=== PATIENT | male | born 1955 | race Caucasian/White ===

== ENCOUNTER 2022-07-03 11:24 | Outpatient (CLI) | payer OTHER, SELFPAY ==
--- NOTE | ~2022-07-03 | XR_ITS ---
Clinical Indication: Asthma PA and lateral views of the chest: Comparison: None Findings: The lungs are clear, without evidence of focal consolidation or pleural effusion. Possible COPD. Cardiomediastinal silhouette is within normal limits. Bones and soft tissues are unremarkable. Impression: Possible COPD. Clear lungs. Reviewed, dictated and finalized at location M. CONSULTANT Impression: Possible COPD. Clear lungs.
== END 2022-07-03 11:25 | disposition home or self-care (01) ==
PROVIDERS: PCP Family Medicine; Visit Provider Family Medicine
DX: J45.20 Mild intermittent asthma, uncomplicated (principal)
CPT/HCPCS: 71046

== ENCOUNTER 2022-08-31 08:50 | Outpatient (CLI) | payer OTHER, SELFPAY ==
--- NOTE | 2022-08-31 17:26 | WPDPFTINT ---
PFT Procedure Performed PFT Procedure Performed Spirometry with Pre/Post Bronchodilator Plethysmography (Lung Vol) Diffusing Cap (DLCO) Flow Vol Loop PFT Interpretation This is a pulmonary function test with pre and post-bronchodilator spirometry, plethysmography and diffusing capacity. The test was performed and results interpreted in accordance with the 2019 and 2005 ATS/ERS Task Force guidelines respectively using the Global Lung Function Initiative-2012 reference equations. Patient demonstrated good effort and cooperation. Reproducibility criteria were met. The quality of the pre bronchodilator spirometry maneuver was Grade A and post bronchodilator spirometry maneuver was Grade A. Findings: Spirometry: There is decreased maximal expiratory airflow at all lung volumes with concave expiratory flow tracing. Contour the inspiratory flow tracing is normal. The pre bronchodilator FVC is 3.27 L, 82% predicted. The pre bronchodilator FEV1 is 2.15 L, 70% predicted. The pre bronchodilator FEV1: FVC ratio 66%. The post bronchodilator FVC is 3.35 L, representing a 3% increase. The post bronchodilator FEV1 is 2.35 L, representing a 9% increase. The post bronchodilator FEV1: FVC ratio is 70%. Plethysmography: The total lung capacity is 5.42 L, 85% predicted. Functional residual capacity is 2.84 L, 86% predicted. The residual volume is 2.15 L, 99% predicted. Diffusing capacity: The diffusing capacity unadjusted for hemoglobin and carboxyhemoglobin is 21.2, 81% predicted. The diffusing capacity adjusted for alveolar volume is 4.69, 110% predicted. Impression: There is a mild obstructive abnormality without significant improvement after inhaling a single dose of albuterol. The lung volumes are normal. The diffusing capacity is normal. There are no prior studies for comparison
== END 2022-08-31 08:51 | disposition home or self-care (01) ==
PROVIDERS: PCP Family Medicine; Visit Provider Family Medicine
DX: J44.9 Chronic obstructive pulmonary disease, unspecified (principal); R94.2 Abnormal results of pulmonary function studies
CPT/HCPCS: 94060; 94726; 94729

== ENCOUNTER 2022-11-05 11:52 | Emergency (ER) | payer OTHER, SELFPAY ==
[2022-11-05 12:00] VITALS: BP 158/100; PULSE 112; RESP 16; TEMP 36.4; O2SAT 98
--- NOTE | 2022-11-05 12:18 | ED.GENADULT ---
HPI - General Adult General Chief complaint: Urogenital-Male Stated complaint: i can't pee Time Seen by Provider: 11/05/22 11:56 History of Present Illness HPI narrative: 67-year-old male presenting to the ED for evaluation of increased difficulty with urination. Patient denies any prior history of prostate issues. Patient denies any slow progression of urinary difficulty. Patient states last night he had acute onset of difficulty urinating. Patient did present to the primary care physician office today but they were unable to cath him and patient was referred to the ED. Upon arrival to the ED patient had a bladder scan showing greater than 200 mL of retained urine. Related Data Home Medications Medication Instructions Recorded Confirmed carbamazepine 200 mg tablet 200 mg PO Q12H 07/07/22 08/07/22 Allergies Allergy/AdvReac Type Severity Reaction Status Date / Time No Known Allergies Allergy Verified 11/05/22 12:02 Review of Systems Review of Systems: All systems reviewed & are unremarkable except as noted in HPI and below PMFSH Past Medical History Medical History (Updated 11/05/22 @ 13:46 by Matthew Fong MD) Abdominal pain Apnea Asthma BMI (body mass index) 20.0-29.9 Colon polyp COPD with asthma Elevated hemoglobin Hyperlipidemia Hypertension Screening for prostate cancer Seizures Surgical History Surgical History History of ankle surgery Family History Family History Other Heart disease Social History Social History Smoking status: Never smoker Alcohol intake: current Lack of Transportation: No Lack of Food: Never True Current Housing: I Have Housing Concerned About Future Housing: No Difficulty Paying Gas/Electric Bills: No Difficulty Paying for Meds: No Currently Unemployed: Decline to Answer Education: High School Diploma/GED Difficulty w/ Childcare or Family Care: No Exam Narrative: APPEARANCE: Well appearing, no pain, no distress, well-nourished. HEAD: normocephalic, atraumatic. EYES: PERRLA/EOMI, conjunctivae clear. NOSE: Normal no drainage NECK: Supple. No adenopathy, no masses. RESPIRATORY: Airway patent, respirations nonlabored. Clear to auscultation bilaterally, no rales, rhonchi, wheezing. CARDIOVASCULAR: Regular rate and rhythm without murmurs rubs or gallops. ABDOMINAL: Soft, nontender, nondistended, normal bowel sounds MUSCULOSKELETAL: Moves all extremities. Strength/ROM intact, No edema, No calf tenderness. NEURO: Alert. Cranial nerves II through XII intact. Grossly intact SKIN: Warm, dry. Normal Color Course Course Emergency Course: 67-year-old male present to the ED for evaluation of increased difficulty urinating. Bedside bladder scan showed greater than 200 mL of retained urine. Patient was unable to drain. Thrasher catheter was placed and patient drained greater than 400 mL of urine. Patient did feel improved with treatment. Patient had no evidence of a urinary tract infection on the labs. Patient was provided Flomax in the ED and started on Flomax for home. Patient and family were updated on the plan for close follow-up with urology. All questions and concerns were addressed. Patient was improved and well-appearing at time of discharge. Vital Signs Vital signs: Vital Signs Temperature 97.5 F L 11/05/22 12:00 Pulse Rate 112 H 11/05/22 12:00 Respiratory Rate 16 11/05/22 12:00 Blood Pressure 158/100 H 11/05/22 12:00 Pulse Oximetry 98 11/05/22 12:00 Temperature 97.5 F L 11/05/22 12:00 Pulse Rate 90 11/05/22 14:02 Respiratory Rate 16 11/05/22 14:02 Blood Pressure 147/97 H 11/05/22 14:02 Pulse Oximetry 96 11/05/22 14:02 Medical Decision Making Vital Signs Vital Signs: Vital Signs Temperature 97.5 F L 11/05/22 12:0
[2022-11-05 12:34] VITALS: BP 139/97; PULSE 91; RESP 17; O2SAT 94
[2022-11-05 12:45] LABS: Appearance Urine Clear (Clear); Bilirubin Urine Negative (Negative); Blood Urine Negative (Negative); Color Urine Yellow (Yellow); Glucose Urine UA Negative (Negative); Ketones Urine Negative (Negative); Leukocyte Esterase Ur Negative LEU/UL (Negative); Nitrate Urine Negative (Negative); Protein Urine Negative (Negative); Urobilinogen Urine 0.2 mg/dL (<2.0); pH Urine 6.5 (5.0-9.0)
[2022-11-05 12:52] LABS: Add Urine Microscopic? NO
[2022-11-05] MEDS: TAMSULOSIN HCL 0.4 MG CAPSULE PO (13:09)
[2022-11-05 14:02] VITALS: BP 147/97; PULSE 90; RESP 16; O2SAT 96
== END 2022-11-05 14:12 | disposition home or self-care (01) ==
PROVIDERS: Emergency Provider Emergency Medicine; PCP Family Medicine
DX: R33.9 Retention of urine, unspecified (principal); J44.9 Chronic obstructive pulmonary disease, unspecified; E78.5 Hyperlipidemia, unspecified; I10 Essential (primary) hypertension; Z86.010 Personal history of colon polyps
CPT/HCPCS: 51702; 81003; 99283; A9270

== ENCOUNTER 2022-11-11 16:25 | Outpatient (CLI) | payer OTHER, SELFPAY ==
[2022-11-11 16:46] LABS: Hematocrit 50.3 % (42.0-52.0); Hemoglobin 17.3 g/dL (14.0-18.0); Mean Corpuscular HGB Conc 34.4 g/dl (32-36); Mean Corpuscular Hemoglobin 32.2 pg (26-34); Mean Corpuscular Volume 93.5 fl (80-100); Mean Platelet Volume 10.5 fl (7.4-10.4); Platelet Count Result 171 k/mm3 (150-375); Red Blood Count 5.38 M/mm3 (4.6-6.20); Red Cell Distribution Width 12.8 % (11.5-14.5); White Blood Count 5.6 K/mm3 (4.5-10.0)
[2022-11-11 17:25] LABS: Anion Gap 11 mmol/L (8-16); Blood Urea Nitrogen 8 mg/dL (9-20); Calcium 9.1 mg/dL (8.4-10.2); Carbon Dioxide 24 mmol/L (22-30); Chloride 99 mmol/L (98-107); Estimated Glomerular Filt Rate > 60; Glucose 109 mg/dL (65-110); Potassium 3.6 mmol/L (3.4-5.0); Sodium 134 mmol/L (137-145)
[2022-11-11 17:57] LABS: Prostate Specific Antigen 3.7 ng/mL (< OR = 4.0)
== END 2022-11-11 16:26 | disposition home or self-care (01) ==
PROVIDERS: PCP Family Medicine; Visit Provider Nurse Practitioner Family
DX: R33.9 Retention of urine, unspecified (principal); Z12.5 Encounter for screening for malignant neoplasm of prostate
CPT/HCPCS: 36415; 80048; 84153; 85027; G0103

== ENCOUNTER 2023-12-10 09:07 | Outpatient (CLI) | payer OTHER, SELFPAY | END 2023-12-10 09:08 | disposition home or self-care (01) | PROVIDERS: PCP Family Medicine | DX: M25.569 Pain in unspecified knee (principal) | CPT/HCPCS: 73562 ==

== ENCOUNTER 2024-03-02 13:32 | Outpatient (CLI) | payer OTHER, SELFPAY ==
--- NOTE | ~2024-03-02 | XR_ITS ---
EXAMINATION: XR lg joint inject/asp w image DATE: 03/02/2024 14:11 INDICATION: Left hip arthritis. TECHNIQUE: A time-out was performed to verify the patient's name, date of , and procedure to b e performed. The procedure including the risks, benefits, and alternatives was discussed with the pat ient. Risks discussed included bleeding and infection. The patient understood the risks and agreed to proceed. The skin overlying the left hip joint was prepped and draped in usual sterile fashion. An esthetic was administered with 1% lidocaine subcutaneously. A 22 G needle was advanced under fluoros copic guidance into the joint. Subsequently, injectate consisting of 2 mL 0.5% bupivacaine and 1 mL 80 mg/mL Depo-Medrol was instilled. The needle was removed and the entry site was cleaned and dresse d. There were no immediate complications. Fluoroscopy exposure time was 0.1 minutes. The total numbe r of images was 1. FINDINGS: Real-time fluoroscopy demonstrates the needle in the left hip joint. Patient's pain prior t o procedure:2/10. Patient's pain following the procedure: 0/10. IMPRESSION: 1. Fluoroscopy guided left hip joint injection of local anesthetic and steroid with decrease in the p atient's presenting pain. Reviewed, dictated and finalized at location A. IMPRESSION: 1. Fluoroscopy guided left hip joint injection of local anesthetic and steroid with decrease in the patient's presenting pain.
== END 2024-03-02 13:33 | disposition home or self-care (01) ==
LOC: ANHIMG 13:36
PROVIDERS: PCP Family Medicine; Visit Provider Nurse Practitioner Family
DX: M16.12 Unilateral primary osteoarthritis, left hip (principal)
CPT/HCPCS: 20610; 77002; J1010

== ENCOUNTER 2025-05-02 09:14 | Outpatient (CLI) | payer OTHER, SELFPAY ==
--- OUTSIDE RECORDS SUMMARY | 2025-05-02 11:59 | XMS_ITS | Clinical Summary ---
Author Organization [facility] Building [address] Address [address] [place] [address] Care Team Providers Care Train Master Name Role Phone Rodolfo Mcfarland MD Primary Care Provider + [phone] Allergies No known active allergies Medications pravastatin (PRAVACHOL) 20 mg tablet Take 1 tablet (20 mg total) by mouth nightly Active carBAMazepine (TEGretol) 200 mg tabletIndicatio ns:Seizure (HCC) Take 1 tablet (200 mg total) by mouth 2 (two) times a day 60 tablet 11 11/06/2020 Active amLODIPine (NORVASC) 5 mg tablet Take 1 tablet (5 mg total) by mouth daily 08/22/2022 Active tamsulosin (FLOMAX) 0.4 mg extended release capsule Take 1 capsule (0.4 mg total) by mouth 2 (two) times a day 02/19/2023 Active lisinopril-hydr oCHLOROthiazide (ZESTORETIC) 10-12.5 mg per tablet Take 1 tablet by mouth every morning 07/08/2023 Active finasteride (PROSCAR) 5 mg tablet Take 1 tablet (5 mg total) by mouth daily Active ascorbic acid (ascorbic acid with tamica hips) 500 mg tablet,chewable Take 1 tablet/chew tab (500 mg total) by mouth daily Active pantoprazole DR (PROTONIX) 40 mg EC tablet Take 1 tablet (40 mg total) by mouth daily 90 tablet 3 10/30/2024 10/31/19 26 Active famotidine (PEPCID) 40 mg tablet Take 1 tablet (40 mg total) by mouth nightly 90 tablet 3 10/30/2024 10/31/19 26 Active Trelegy Ellipta 100-62.5-25 mcg inhaler Inhale 1 puff daily Starting when other inhaler runs out 11/12/2024 Active meloxicam (MOBIC) 15 mg tablet Take 1 tablet (15 mg total) by mouth daily 11/10/2024 Active calcium carbonate-vitam in D3 2,500 mg (1,000 mg elemental)-800 unit tablet Take 1 each by mouth daily Active gabapentin (NEURONTIN) 300 mg capsule Take 1 capsule (300 mg total) by mouth 2 (two) times a day Active HYDROcodone-pita taminophen (NORCO) 5-325 mg per tabletIndicatio ns:Pain Take 1 tablet by mouth every 6 (six) hours as needed for pain 15 tablet 03/20/2025 Active ciprofloxacin (CIPRO) 500 mg tablet Take 1 tablet (500 mg total) by mouth 2 (two) times a day 6 tablet 03/20/2025 Active Active Problems Problem Noted Date Diagnosed Date BPH with urinary obstruction 03/20/2025 Benign localized prostatic h yperplasia with lower urinary tract symptoms (LUTS) 03/15/2025 Hiatal hernia 12/27/2023 Carcamo's esophagus with dysplasia 12/27/2023 Right ureteral injury, initial encounter 024 Stricture, urethra 08/26/2023 Gastric polyps 07/29/2023 Assessment & Plan (08/05/2023 10:15 AM MEMBERSHIP SALES REPRESENTATIVE): Schedule GD for evaluation because of the multiple colon polyps. Personal history of colonic polyps 02/10/2023 Colon polyposis 02/10/2023 Assessment & Plan (08/05/2023 10:17 AM MEMBERSHIP SALES REPRESENTATIVE): Patient has more than 26 adenoma polyps removed from the colon on the last 5 years. Will refer the patient for genetic studies. If proved positive for genetic predisposition then patient will benefit from subtotal colectomy. If the genetic studies negative then the patient will need right hemicolectomy and will continue annual surveillance of the remaining left side of the colon. Encounter for screening colonoscopy 02/10/2023 Overweight with body mass index (BMI) 25.0-29.9 05/17/2020 Asthma 05/17/2020 Dislocation of shoulder joint 05/17/2020 Essential hypertension 05/17/2020 Hyperlipidemia 05/17/2020 Screen for colon cancer 03/13/2019 Overview (03/13/2019): Added automatically from request for surgery [id number] Epilepsy undetermined whether focal or generaliz ed 07/12/2015 Overview (09/18/2016): Epilepsy undetermined whether focal or generalized Seizure 04/10/2013 Overview (09/16/2016): Seizure / Convulsions Encounters Date Type Department Care Team Description 03/22/2025 [facility] Post Discharge Follow up phone call [facility] [address] [place] [address] Sarahy March 03/20/2025 9:53 AM CDT Anesthesia Event [facility] Operating Room [address] [place] [address] Nicolasa Gray MD Alexander, Jeffrey Michael, DO 03/20/2025 9:45 AM CDT - 03/20/2025 11:00 AM CDT Surgery [facility] Operating Room [address] [place] [address] Josette Loomis MD CYSTOSCOPY, TRANSURETHRAL RESECTION OF PROSTATE 03/20/2025 7:23 AM CDT - 03/21/2025 2:11 PM CDT Hospital Encounter [facility] [address] [place] [address] Josette Loomis MD Benign localized prostatic hyperplasia with lower urinary tract symptoms (LUTS); Stricture of male urethra, unspecified stricture type Discharge Disposition: Discharge to home or self care 02/08/2025 7:49 AM CDT - 02/08/2025 9:33 AM CDT Emergency [facility] Emergency Department [address] [place] [address] Steven Estrella MD Urinary retention (Primary Dx) Discharge Disposition: Discharge to home or self care from Last 3 Months Immunizations Immunization Administration Dates Next Due Influenza, Unspecified 02/12/2025 Surgical History Surgery Date Site/Laterality Comments COLONOSCOPY 10/13/2015 - 11/12/2015 ORIF ANKLE FRACTURE Right years ago ORIF WRIST FRACTURE Left years ago COLONOSCOPY 04/14/2019 - 05/13/2019 COLONOSCOPY 04/14/2023 - 05/13/2023 COLONOSCOPY 05/08/2024 OTHER SURGICAL HISTORY 10/13/2023 Cystoscopy, Retrograde Uretherogram, Dilation of Stricture, Optilum Balloon, Thrasher Catheter Placement Medical History Medical History Date Comments Seizure disorder (HCC) Epilepsy Colon polyp Hypertension Asthma Hyperlipemia COPD (chronic obstructive pulmonary disease) BPH (benign prostatic hyperplasia) Family History Medical History Relation Name Comments Heart disease Father Heart disease Mother Heart disease Other Family history of Heart disease; Relation Name Status Comments Father Mother Other Social History Tobacco Use Types Packs/Day Years Used Date Smoking Tobacco: Former Cigarettes Q uit: 1972 Smokeless Tobacco: Never Tobacco Cessation:Counseling Given: Not Answered Alcohol Use Standard Drinks/Week Comments Not Currently 0 (1 standard drink = 0.6 oz pur e alcohol) occasionally PHQ-2 Answer Date Recorded PHQ-2 Total Score (If total score is 3 or more points, staff should administer the PHQ-9) 0 03/20/2025 AUDIT-C Answer Date Recorded Q1: How often do you have a drink containing alcohol? Never 03/15/2025 Q2: How many drinks containi ng alcohol do you have on a typical day when you are drinking? Patient does not drink Q3: How often do you have si x or more drinks on one occasion? Never 03/15/2025 Personal Safety Answer Date Recorded Have you ever been in or are you currently in a harmful physical or emotional relationship or is someone making you feel afraid or unsafe? Denies 03/20/2025 Sex and Gender Information Value Date Recorded Sex Assigned at Not on file Legal Sex Male 1:58 AM MEMBERSHIP SALES REPRESENTATIVE Gender Identity Not on file Sexual Orientation Not on file Last Filed Vital Signs Vital Sign Reading Time Taken Comments Blood Pressure 143/82 03/21/2025 11:11 AM CDT Pulse 81 03/21/2025 11:11 AM CDT Temperature 36.8 C (98.3 F) 03/21/2025 11:11 AM CDT Respiratory Rate 18 03/21/2025 11:1 1 AM CDT Oxygen Saturation 98% 03/21/2025 11: 11 AM CDT Inhaled Oxygen Concentration - - Weight 83.8 kg (184 lb 11.9 oz) 03/20/2025 6:40 PM CDT Height 170.2 cm (5' 7) 03/20/2025 6:40 PM CDT Body Mass Index 28.94 03/20/2025 6:40 PM CDT Plan of Treatment Health Maintenance Due Date Last Done Comments Hepatitis C Screening 1955 Prostate Cancer Screening-PSA 1955 DTaP/Tdap/Td Vaccine (1 - Tdap) 01/30/1968 Hepatitis B Screening 1975 Pneumococcal vaccine 65+ (1 of 2 - PCV) 01/30/1976 06/14/2013 Zoster Vaccine (1 of 2) 2007 Abdominal Aortic Aneurysm (A AA) Screen 2022 Well Visit 65+ 2022 Covid-19 Vaccine (4 - 2024-2 6 season) 2025 04/08/2021, 09/04/2020, 08/07/2020 Depression Screening 03/15/2026 03/15/2025 Fall Risk Assessment 03/21/2026 03/21/2025, 03/15/20 Colon Cancer Screening-Colonoscopy 05/08/2034 05/08/2024, 05/04/2023, 04/19/2019, Additional history exists Colon Cancer Screening-CT Colonography Discontinued 05/08/2024, 05/04/2023, 04/19/2019, Additional history exists Colon Cancer Screening-DNA Stool Discontinued 05/08/2024, 05/04/2023, 04/19/2019, Additional history exists Colon Cancer Screening-FIT Discontinued 05/08, 05/04/2023, 04/19/2019, Additional history exists Colon Cancer Screening-Sigmoidoscopy Discontinued 05/08/2024, 05/04/2023, 04/19/2019, Additional history exists Influenza Vaccine Completed 02/12/2025, , 03/28/2021, Additional history exists Procedures Procedure Name Priority Date/Time Associated Diagnosis Comments SURGICAL PATHOLOGY Routine 03/20/2025 11 :48 AM CDT Benign localized prostatic hyperplasia with lower urinary tract symptoms (LUTS) Stricture of male urethra, unspecified stricture type MI AN ELECTIVE SUPRAGLOTTIC AIRWAY Routine 03/20/2025 10:03 AM CDT CYSTOSCOPY URETHRAL DILATION 03/20/2025 9:38 AM CDT Benign localized prostatic hyperplasia with lower urinary tract symptoms (LUTS) Stricture of male urethra, unspecified stricture type ECG 12-LEAD Routine 03/20/2025 8:12 AM CDT POTASSIUM, WHOLE BLOOD STAT 03/20/2025 8:00 AM CDT URINALYSIS, MICROSCOPIC ONLY STAT 02/08/2025 8:44 AM CDT URINE CULTURE STAT 02/08/2025 8:44 AM CDT URINALYSIS AND REFLEX TO MICROSCOPIC AND CULTURE STAT 02/08/2025 8:44 AM CDT COLONOSCOPY 05/08/2024 10:46 AM MEMBERSHIP SALES REPRESENTATIVE from Last 3 Months or Most Recently Relevant to Health Maintenance Results * Surgical pathology (03/20/2025 11:48 AM CDT) Tissue (Prostate, transurethral resection) 03/20/2025 9:44 AM CDT Narrative PATHOLOGY [facility] - 03/22/2025 8:04 AM CDT EPIC results best viewed via link to PDF [facility] Department of Pathology [address] [place] [address] Note to Patients: This report may contain a detailed description of human tissue sent by a health care provider to the laboratory for pathologic evaluation. The content of this report is essential for diagnosis and may provide important critical findings. This information may be unfamiliar to patients to review without a medical professional present. It is advised that the patient review this report in the presence of a health care provider who can answer questions and explain the details. Final Report Patient Name: MALICK BORGES Address: [address] [place] [address] Gender: M : 1955 (Age: 70) Service: Surgery Location: [facility] #: [id number] Patient Type: [facility] EP OP in bed Taken: 03/20/2025 Received: 03/20/2025 Accessioned: 03/20/2025 Reported: 03/22/2025 Physician(s):Josette Hernandez MD Diagnosis: Prostate, Transurethral resection - Consistent with a benign prostatic hyperplasia - Focal chronic inflammation - See description Marco Craven MD PhD Report Electronically Reviewed and Signed Out By Marco Craven MD PhD 03/22/2025 08:04:58 Specimen(s) Received: A: Prostate chips Microscopic Description: Sections from the transurethral resection specimen show multiple fragments of prostatic parenchyma with abundant fibrous stroma. PIN4 combination immunohistochemical stains (x6) are performed and show no significant AMACR staining in the absence of myoepithelium. Focal chronic inflammatory cells are present. Clinical correlation and continued follow-up recommended. Clinical History: Benign localized prostatic hyperplasia with lower urinary tract symptoms. Stricture of male urethra. Cystoscopy, dilation and of stricture, transurethral resection of prostate. Gross Description: The specimen is submitted in a single container labeled MALICK BORGES and prostate chips. It is a(n) 11 gram aggregate of multiple pale spear to pink-spear rubbery tissue fragments. All in six cassettes. Torres Albright R.N., P.A./Annabelle Noel M.D. REPORT IMAGES AND SCANNED DOCUMENTS, IF INCLUDED, ONLY VIEWABLE IN PDF VERSION OF REPORT The performance characteristics of some immunohistochemical stains, fluorescence in-situ hybridization tests and immunophenotyping by flow cytometry cited in this report (if any) were determined by the Surgical Pathology Department at [facility] as part of an ongoing software quality assurance analyst program and in compliance with federally mandated regulations drawn from the Clinical Laboratory Improvement Act of 1988 (CLIA '88). Some of these tests rely on the use of analyte specific reagents and are subject to specific labeling requirements by the US Food and Drug Administration. Such diagnostic tests may only be performed in a facility that is certified by the Department of Health and Human Services as a high complexity laboratory under CLIA '88. The FDA has determined that such clearance or approval is not necessary. This test is used for clinical purposes. It should not be regarded as investigational or for research. Nevertheless, federal rules concerning the medical use of analyte specific reagents require that the following disclaimer be attached to the report: This test was developed and its performance characteristics determined by the Surgical Pathology Department [facility]. It has not been cleared or approved by the U. S. Food and Drug Administration. Note for decalcified specimens: This assay has not been validated on decalcified tissues. Results should be interpreted with caution given the possibility of false negativity on decalcified specimens Josette Hernandez MD LAB PATHOLOGY ORDERABLES Final Result PATHOLOGY [facility] ([place]) [address] [place] [address] * MI AN ELECTIVE SUPRAGLOTTIC AIRWAY (03/20/2025 10:03 AM CDT) Narrative Gustabo Pacheco CRNA - 03/20/2025 10:03 AM CDT Gustabo Pacheco CRNA 03/20/2025 10:04 AM Airway Patient location: OR Urgency: elective Date/time: 03/20/2025 10:00 AM Indications for airway management: anesthesia and airway protection Difficult airway: no Staff: Placed by: FINANCIAL SERVICES AGENT: Gustabo Pacheco CRNA Emergent airway documentation: Risks and benefits discussed: yes Consent obtained: yes Consent given by: patient Airway prep: Preoxygenated: yes Patient position: sniffing Mask difficulty assessment: 0 - not attempted Sedation level during airway: GA Final airway details: Final airway type: supraglottic airway Final supraglottic airway: unique SGA size: 4 Number of attempts: 1 Additional comments: Atraumatic LMA placement performed by Corina Roberts. Dentition/lips same as preop. No GERD sx today-on daily therapy Nicolasa Gray MD ANESTHESIA ORDERABLES Fi nal Result * Potassium, whole blood (03/20/2025 8:00 AM CDT) Potassium, bld 3.6 3.3 - 4.9 mmol/L Comment: Interpretive Data This method is not able to assess for hemolysis, which may falsely increase potassium concentrations. If further testing is needed to evaluate this result, consider in-laboratory plasma potassium. Current Interpretive Data was last revised on 2022. Blood 03/20/2025 8:00 AM CDT 03/20/2025 8:30 AM CDT us Nicolasa Gray MD LAB BLOOD ORDERABLES Fin al Result [facility] ([place]) 1 [facility] Department [place] [address] * (ABNORMAL) Urinalysis reflex to microscopic and culture Urine (02/08/2025 8:44 AM CDT) Color, ur Straw Yellow Clarity, ur Turbid(A) Clear [facility] ([place]) Specific gravity, ur 1.010 1.003 - 1.030 [facility] ([place]) pH, urine 7.5 [facility] ([place]) Comment: Interpretive Data U rine pH is affected by diet, medications, systemic acid-base disturbances, and renal tubular function. pH may affect urinary stone formation. For example, urine pH below 6.0 may help reduce the tendency for calcium phosphate stones and pH greater than 6.0 may reduce the tendency for uric acid stone formation. Source: [facility] [place] Current Interpretive Data was last revised on 2017 Protein, ur ql Negative Negative [facility] ([place]) Glucose, ur ql Negative Negative [facility] ([place]) Ketones, ur Negative Negative [facility] ([place]) Bilirubin, ur Negative Negative [facility] ([place]) Blood, ur 3+(A) Negative [facility] ([place]) Urobilinogen, ur <2.0 <2.0 mg/dL [facility] ([place]) Nitrite, ur Negative Negative [facility] ([place]) Leukocyte esterase, ur Negative Negative [facility] ([place]) UA reflex comment Reflex to microscopic UA will be performed. [facility] ([place]) Urine 02/08/2025 8:44 AM CDT 02/08/2025 8:46 AM CDT us Steven Estrella MD LAB MICROBIOLOGY - GENERAL ORDERABLES Final Result [facility] ([place]) 1 [facility] Department [place] [address] * (ABNORMAL) Urinalysis, microscopic only (02/08/2025 8:44 AM CDT) WBC, ur 11-20(A) 0 - 5 /HPF RBC, ur >50(A) 0 - 2 /HPF [facility] Mucous, ur Present(A) [facility] A ([place]) Hyaline casts, ur 1-5 0 - 10 /LPF [facility] ([place] Culture Reflex Comment Reflex to urine culture will be performed. [facility]ANI [facility] Urine 02/08/2025 8:44 AM CDT 02/08/2025 8:46 AM CDT us Steven Estrella MD LAB URINE ORDERABLE S Final Result Performing Organization Address City/[facility]/ZIP Co de Phone Number [facility] 1 [facility] Department [place] [address] * Urine culture Urine (02/08/2025 8:44 AM CDT) Report Final Report: No growth Comment:Testing performed by : [facility], [address] [place]., [address] Urine 02/08/2025 8:44 AM CDT 02/08/2025 12:37 PM CDT Narrative [facility] - 02/09/2025 1:39 PM CDT Urine culture reflexed based upon urinalysis results. Testing performed by [facility] Microbiology Laboratory ([phone]) us Steven Estrella MD LAB MICROBIOLOGY - GENERAL ORDERABLES Final Result [facility] 1 [facility] [place] [address] * Colonoscopy (05/08/2024 10:46 AM MEMBERSHIP SALES REPRESENTATIVE) Anatomical Region Laterality Modality Other Narrative Procedure Note Karadaghy, Ahmad A., MD - 05/08/2024 10:46 AM CST [facility] Patient Name: Malick Borges Procedure Date: 05/08/2024 10:46AM Date of : 1955 Admit Type: Outpatient Age: 69 Gender: Male Attending MD: Pnocho Lopez M.D. Room: [facility] ENDOSCOPY ROOM 1 Note Status: Finalized Patient Profile: This is a 69 year old male. History of multiple adenoma polyps with more than 30 polyps identified over the years and removed. No family history ofcolon cancer. Procedure: Colonoscopy Indications: Surveillance: History of numerous (> 10) adenomason last colonoscopy (< 3 yrs), Surveillance: Historyof piecemeal removal adenoma on last colonoscopy (< 3 yrs), Last colonoscopy: April 2023 Referring MD: Rodolfo Mcfarland M.D. Providers: Poncho Lopez M.D. Impression: - One 4 mm polyp in the descending colon, removedwith a jumbo cold forceps. Resected and retrieved. - Diverticulosis in the sigmoid colon and in the descending colon. Localized area of inflammation. Biopsied. - Internal hemorrhoids. Recommendation: - Await pathology results. - Repeat colonoscopy in 3 years for surveillance. Medicines: Monitored Anesthesia Care Complications: No immediate complications. Estimated Blood Loss: Estimated blood loss: none. Procedure: Pre-Anesthesia Assessment: - Prior to the procedure, a History and Physicalwas performed, and patient medications and allergieswere reviewed. The patient's tolerance of previous anesthesia was also reviewed. The risks andbenefits of the procedure and the sedation options and risks were discussed with the patient. All questions were answered, and informed consent was obtained. Prior Anticoagulants: The patient has taken noanticoagulant or antiplatelet agents. ASA Grade Assessment: Per anesthesia note and evaluation. After reviewing the risks and benefits, the patient was deemed in satisfactory condition to undergo the procedure. The benefits, risks and alternatives of theprocedure and sedation were discussed and informed consentwas obtained. All questions were answered. Please referto the signed informed consent document in the medical record. The bowel preparation used was Miralax via split dose instruction. The bowel preparation usedwas bisacodyl tablets via split dose instruction. The scope was passed under direct vision. The Pediatric Colonoscope [id number]-[id number] was introducedthrough the anus and advanced to the the cecum, identifiedby appendiceal orifice and ileocecal valve. Thequality of the bowel preparation was good. Bowel prep was administered using a split dose. Findings: The perianal and digital rectal examinations were normal. The cecum appeared normal. The transverse colon and ascending colon appeared normal. A 4 mm polyp was found in the descending colon. The polyp was semi-sessile. The polyp was removed with a jumbo cold forceps.Resection and retrieval were complete. Multiple small-mouthed diverticula were found in the sigmoid colonand descending colon. Small localized area of what appeared to be inflammation with erosions noted in the sigmoid colon. Biopsies were taken with a cold forceps for histology. Internal hemorrhoids were found during retroflexion. The hemorrhoids were medium-sized. Electronically signed by Poncho Lopez M.D. Poncho Lopez M.D. 05/08/2024 1:09:59 PM Number of Addenda: 0 Note Initiated On: 05/08/2024 10:46 AM Procedure Code(s): --- Professional --- 68807, Colonoscopy, flexible; with biopsy, single or multiple Diagnosis Code(s): --- Professional --- K64.8, Other hemorrhoids D12.4, Benign neoplasm of descending colon Z86.010, Personal history of colonic polyps K57.30, Diverticulosis of large intestine without perforation orabscess without bleeding CPT copyright 2020 [employer] [employer]. All rights reserved. The codes documented in this report are preliminary and upon beef cattle farmer reviewmay be revised to meet current compliance requirements. Recognized by the [place] [employer] for promoting quality in endoscopy Poncho Lopez MD ENDOSCOPY PROCEDURES Final Result from Last 3 Months or Most Recently Relevant to Health Maintenance Insurance [facility] Advance Directives For more information, please contact: [phone] * Full Code (Latest Code Status on File) Date Activated Date Inactivated Comments 03/20/2025 12:39 PM 03/21/2025 6:11 PM * Full Code Date Activated Date Inactivated Comments 10/30/2024 8:31 AM 10/30/2024 2:08 PM * Full Code Date Activated Date Inactivated Comments 10/30/2024 8:31 AM 10/30/2024 8:31 AM * Full Code Date Activated Date Inactivated Comments 05/08/2024 10:49 AM 05/08/2024 5:47 PM * Full Code Date Activated Date Inactivated Comments 05/08/2024 10:49 AM 05/08/2024 10:49 AM Care Teams Train Master Relationship Specialty Start Date End Date Rodolfo Mcfarland MD PCP - General Family Medicine 03/04/23
--- OUTSIDE RECORDS SUMMARY | 2025-05-02 11:59 | XMS_ITS | Clinical Summary ---
Author Organization [facility] Care Team Providers Care Plow Shaker Name Role Phone Unavailable Primary Care Provider Unavailabl e Social History Tobacco Use Types Packs/Day Years Used Date Smoking Tobacco: Never Assessed Sex and Gender Information Value Date Recorded Sex Assigned at Not on file Legal Sex Male 8:01 PM CDT Gender Identity Not on file Sexual Orientation Not on file Plan of Treatment Health Maintenance Due Date Last Done Comments Hepatitis C Virus (HCV) Screening 1955 TdaP Immunization 1955 Varicella Immunization (1 of 2 - 13+ 2-dose series) 1970 Cologuard 2002 Immunochemical Fecal Occult Blood 2002 Pneumococcal Immunization (5 0+ years) (1 of 1 - PCV) 2007 Zoster Immunization (1 of 2) 2007 PSA Discussion 01/30/2012 Influenza Immunization (#1) 2025 SARS-COV-2 Immunization ( - 2024- season) 2025 Respiratory Syncytial Virus (RSV) Immunization (Adult) (1 - 1-dose 75+ series) 01/30/2032 Colonoscopy 05/04/2033 05/04/2023 Colorectal Cancer Screening 05/04/2033 Hepatitis B Immunization Aged Out No longer eligible based on patient's age to complete this topic Human Papillomavirus (HPV) Immunization Aged Out No longer eligible b ased on patient's age to complete this topic Meningococcal Immunization (ACWY) Aged Out No longer eligible based on patient's age to complete this topic Rotavirus Immunization Aged Out No lo nger eligible based on patient's age to complete this topic
--- NOTE | 2025-05-09 20:51 | WPDHOLTEREM ---
Holter/Event Monitor Holter/Event Monitor Date of procedure: 05/02/25 Holter/Event Procedure: 3-7 Day Holter Monitor Indications: Cardiac arrhythmia Conclusion: 1. 3 days, 6 hours holter monitor on 05/02/25. 2. Predominant rhythm is sinus rhythm. HR range 51-162 bpm; average HR 81 bpm. 3. There are rare premature supraventricular complexes, rare supraventricular couplets, and rare supraventricular triplets. There are 5 episodes of supraventricular tachycardia with fastest at 162 bpm and longest lasting 14 beats. 4. There are occasional premature ventricular complexes, rare ventricular couplets, and rare ventricular triplets, longest ventricular bieminy was 6.4 seconds, and longest ventricular trigeminy was 9 seconds. There is 1 episode of ventricular tachycardia at 158 bpm lasting 8 beats. 5. No significant pauses greater than 3 seconds. 6. No symptoms available for correlation.
== END 2025-05-02 09:15 | disposition home or self-care (01) ==
PROVIDERS: PCP Family Medicine; Visit Provider Physician Assistant Medical
DX: I49.1 Atrial premature depolarization (principal); I47.10 Supraventricular tachycardia, unspecified; I49.3 Ventricular premature depolarization; I47.20 Ventricular tachycardia, unspecified
CPT/HCPCS: 93242